=== PATIENT | female | born 1955 | race African-American/Black ===

== ENCOUNTER 2017-02-24 10:54 | Inpatient (IN) | payer BC ==
[2017-02-24 13:22] LABS: ADD MAN DIFF? NO
[2017-02-24 13:26] LABS: WHITE BLOOD COUNT 6.8 10^3/ul (4.8-10.8)
[2017-02-24 13:26] LABS: BASOPHILS % 0.4 % (0.0-2.0); EOSINOPHILS % 0.6 % (0.0-7.0); HEMATOCRIT 38.3 % (37.0-47.0); HEMOGLOBIN 12.1 g/dl (12.0-16.0); LYMPHOCYTES # 1.8 10^3/ul (0.8-2.9); LYMPHOCYTES % 26.3 % (15.0-51.0); MEAN CORPUSCULAR HEMOGLOBIN 27.2 pg (29.0-33.0); MEAN CORPUSCULAR HGB CONC 31.6 g/dl (32.0-37.0); MEAN CORPUSCULAR VOLUME 86.1 fl (82.0-101.0); MEAN PLATELET VOLUME 9.7 fl (7.4-10.4); MONOCYTE # 0.6 10^3/ul (0.3-0.9); MONOCYTES % 8.3 % (0.0-11.0); NEUTROPHIL # 4.4 10^3/ul (1.6-7.5); NEUTROPHILS % 64.1 % (39.0-77.0); PLATELET COUNT 278 10^3/UL (140-415); RED BLOOD COUNT 4.45 10^6/ul (4.20-5.40); RED CELL DISTRIBUTION WIDTH 16.6 % (11.5-14.5)
[2017-02-24 13:44] LABS: ALANINE AMINOTRANSFERASE 33 IU/L (13-69); ALBUMIN 4.2 g/dl (3.3-4.9); ALKALINE PHOSPHATASE 104 IU/L (42-121); ANION GAP 14 (8-16); ASPARTATE AMINO TRANSFERASE 23 IU/L (15-46); BILIRUBIN,INDIRECT 0.2 mg/dl (0-1.1); BILIRUBIN,TOTAL 0.2 mg/dl (0.2-1.3); BLOOD UREA NITROGEN 18 mg/dl (7-20); CARBON DIOXIDE 33 mmol/L (21-31); CHLORIDE 102 mmol/L (97-110); CREATININE 0.88 mg/dl (0.44-1.00); GLUCOSE 150 mg/dl (70-220); POTASSIUM 3.5 mmol/L (3.5-5.1); SODIUM 145 mmol/L (135-144)
[2017-02-24 13:47] LABS: INR 2.25; PROTIME 25.4 Sec (11.9-14.9)
[2017-02-24 13:48] LABS: PARTIAL THROMBOPLASTIN TIME 49.9 Sec (25.0-35.0)
[2017-02-24 13:56] LABS: TROPONIN-I < 0.012 ng/ml (0.00-0.12)
[2017-02-24 15:18] LABS: HEMATOCRIT 32.2 % (37.0-47.0); HEMOGLOBIN 10.1 g/dl (12.0-16.0)
[2017-02-24] MEDS ORDERED: ACETAMINOPHEN 325 MG TAB PO ×2 (16:00→17:00)
[2017-02-24] MEDS ORDERED: ONDANSETRON 4 MG INJ IV ×2 (16:00→17:00)
[2017-02-24] MEDS: morphine 4 MG/ML VIAL IV (16:14)
[2017-02-24] MEDS ORDERED: NACL 0.9% 3 ML SYG IV (17:00)
[2017-02-24] MEDS ORDERED: ZOLPIDEM 5 MG TAB PO (17:00)
[2017-02-24] MEDS ORDERED: morphine LIQ (10 MG/5 ML) CUP PO (17:00)
[2017-02-24] MEDS: POTASSIUM CHLORIDE (SR) 20 MEQ TAB PO (23:16)
[2017-02-24] MEDS: PANTOPRAZOLE 40 MG INJ IV (23:16)
[2017-02-24] MEDS: POTASSIUM CHLORIDE (SR) 10 MEQ TAB PO (23:27)
[2017-02-24] MEDS: NS + KCL 20 MEQ 1,000 ML IV (23:27)
[2017-02-25] MEDS: NS + KCL 20 MEQ 1,000 ML IV ×4 (02:55→22:55)
[2017-02-25] MEDS: PANTOPRAZOLE 40 MG INJ IV ×2 (06:20→17:39)
[2017-02-25] MEDS: LEVOTHYROXINE 100 MCG TAB PO (06:20)
[2017-02-25] MEDS: PHYTONADIONE 10 MG/ML INJ SC (07:50)
[2017-02-25 08:38] LABS: ADD MAN DIFF? NO
[2017-02-25 08:42] LABS: WHITE BLOOD COUNT 7.1 10^3/ul (4.8-10.8)
[2017-02-25 08:42] LABS: BASOPHILS % 0.1 % (0.0-2.0); EOSINOPHILS % 0.6 % (0.0-7.0); HEMATOCRIT 24.6 % (37.0-47.0); HEMOGLOBIN 7.7 g/dl (12.0-16.0); LYMPHOCYTES # 1.5 10^3/ul (0.8-2.9); LYMPHOCYTES % 21.5 % (15.0-51.0); MEAN CORPUSCULAR HEMOGLOBIN 27.4 pg (29.0-33.0); MEAN CORPUSCULAR HGB CONC 31.3 g/dl (32.0-37.0); MEAN CORPUSCULAR VOLUME 87.5 fl (82.0-101.0); MEAN PLATELET VOLUME 10.6 fl (7.4-10.4); MONOCYTE # 0.6 10^3/ul (0.3-0.9); NEUTROPHIL # 4.9 10^3/ul (1.6-7.5); NEUTROPHILS % 68.4 % (39.0-77.0); PLATELET COUNT 198 10^3/UL (140-415); RED BLOOD COUNT 2.81 10^6/ul (4.20-5.40); RED CELL DISTRIBUTION WIDTH 16.7 % (11.5-14.5)
[2017-02-25] MEDS: POTASSIUM CHLORIDE (SR) 10 MEQ TAB PO ×2 (08:53→21:17)
[2017-02-25] MEDS: DILTIAZEM (CD) 240 MG CAP PO (08:53)
[2017-02-25] MEDS: HYDROCHLOROTHIAZIDE 25 MG TAB PO (08:53)
[2017-02-25 08:58] LABS: PROTIME 26.8 Sec (11.9-14.9); PT RATIO 2.1
[2017-02-25 08:59] LABS: PARTIAL THROMBOPLASTIN TIME 43.9 Sec (25.0-35.0)
[2017-02-25 09:05] LABS: ANION GAP 10 (8-16); BLOOD UREA NITROGEN 20 mg/dl (7-20); CALCIUM 6.9 mg/dl (8.4-10.2); CARBON DIOXIDE 28 mmol/L (21-31); CHLORIDE 107 mmol/L (97-110); CREATININE 0.89 mg/dl (0.44-1.00); GLUCOSE 94 mg/dl (70-220); POTASSIUM 3.6 mmol/L (3.5-5.1); SODIUM 141 mmol/L (135-144)
[2017-02-25] MEDS: SOD FERRIC GLUC COMPLX 125 MG in SOD CHLORIDE 0.9% 100 ML IVPB (09:54)
[2017-02-25] MEDS: PROPOFOL 20 ML (12:10)
[2017-02-25] MEDS: LIDOCAINE 2% (SDV) 5 ML INJ (12:10)
[2017-02-25] MEDS: FENTAnyl 50 MCG/ML VIAL (12:10)
[2017-02-25] MEDS ORDERED: PEG/ELECTROLYTES 4L BTL PO (14:00)
[2017-02-25 14:17] LABS: ADD MAN DIFF? NO
[2017-02-25 14:21] LABS: WHITE BLOOD COUNT 7.2 10^3/ul (4.8-10.8)
[2017-02-25 14:21] LABS: BASOPHILS % 0.1 % (0.0-2.0); EOSINOPHILS # 0.1 10^3/ul (0.0-0.5); EOSINOPHILS % 0.7 % (0.0-7.0); HEMATOCRIT 24.7 % (37.0-47.0); HEMOGLOBIN 7.6 g/dl (12.0-16.0); LYMPHOCYTES # 1.7 10^3/ul (0.8-2.9); LYMPHOCYTES % 23.3 % (15.0-51.0); MEAN CORPUSCULAR HEMOGLOBIN 27.2 pg (29.0-33.0); MEAN CORPUSCULAR HGB CONC 30.8 g/dl (32.0-37.0); MEAN CORPUSCULAR VOLUME 88.5 fl (82.0-101.0); MEAN PLATELET VOLUME 10.5 fl (7.4-10.4); MONOCYTE # 0.7 10^3/ul (0.3-0.9); NEUTROPHIL # 4.8 10^3/ul (1.6-7.5); NEUTROPHILS % 66.5 % (39.0-77.0); PLATELET COUNT 179 10^3/UL (140-415); RED BLOOD COUNT 2.79 10^6/ul (4.20-5.40); RED CELL DISTRIBUTION WIDTH 16.7 % (11.5-14.5)
[2017-02-25] MEDS: PEG/ELECTROLYTES 4L BTL PO ×2 (14:28→22:17)
[2017-02-25] MEDS: MAGNESIUM CITRATE 300 ML BTL PO (17:11)
[2017-02-25 18:14] LABS: HEMATOCRIT 24.8 % (37.0-47.0); HEMOGLOBIN 7.8 g/dl (12.0-16.0)
[2017-02-25 20:43] LABS: IMMEDIATE SPIN CROSSMATCH 1
[2017-02-26 01:06] LABS: IMMEDIATE SPIN CROSSMATCH 1 1
[2017-02-26 02:57] LABS: HEMATOCRIT 27.7 % (37.0-47.0); HEMOGLOBIN 9.1 g/dl (12.0-16.0)
[2017-02-26] MEDS: PANTOPRAZOLE 40 MG INJ IV ×2 (06:01→18:35)
[2017-02-26] MEDS: LEVOTHYROXINE 100 MCG TAB PO (06:01)
[2017-02-26] MEDS: SOD FERRIC GLUC COMPLX 125 MG in SOD CHLORIDE 0.9% 100 ML IVPB (08:31)
[2017-02-26] MEDS: POTASSIUM CHLORIDE (SR) 10 MEQ TAB PO ×2 (08:32→20:43)
[2017-02-26] MEDS: HYDROCHLOROTHIAZIDE 25 MG TAB PO (08:32)
[2017-02-26] MEDS: NS + KCL 20 MEQ 1,000 ML IV ×3 (08:33→23:50)
[2017-02-26] MEDS: DILTIAZEM (CD) 240 MG CAP PO (08:33)
[2017-02-26 09:03] LABS: ADD MAN DIFF? NO
[2017-02-26 09:23] LABS: WHITE BLOOD COUNT 7.9 10^3/ul (4.8-10.8)
[2017-02-26 09:23] LABS: BASOPHILS % 0.3 % (0.0-2.0); EOSINOPHILS # 0.1 10^3/ul (0.0-0.5); EOSINOPHILS % 1.3 % (0.0-7.0); HEMATOCRIT 29.2 % (37.0-47.0); HEMOGLOBIN 9.6 g/dl (12.0-16.0); LYMPHOCYTES # 1.4 10^3/ul (0.8-2.9); LYMPHOCYTES % 17.2 % (15.0-51.0); MEAN CORPUSCULAR HEMOGLOBIN 28.4 pg (29.0-33.0); MEAN CORPUSCULAR HGB CONC 32.9 g/dl (32.0-37.0); MEAN CORPUSCULAR VOLUME 86.4 fl (82.0-101.0); MEAN PLATELET VOLUME 11.8 fl (7.4-10.4); MONOCYTE # 0.6 10^3/ul (0.3-0.9); MONOCYTES % 7.6 % (0.0-11.0); NEUTROPHIL # 5.7 10^3/ul (1.6-7.5); RED BLOOD COUNT 3.38 10^6/ul (4.20-5.40); RED CELL DISTRIBUTION WIDTH 16.4 % (11.5-14.5)
[2017-02-26 09:27] LABS: ANION GAP 14 (8-16); BLOOD UREA NITROGEN 12 mg/dl (7-20); CALCIUM 7.7 mg/dl (8.4-10.2); CARBON DIOXIDE 30 mmol/L (21-31); CHLORIDE 107 mmol/L (97-110); CREATININE 0.83 mg/dl (0.44-1.00); GLUCOSE 76 mg/dl (70-220); POTASSIUM 3.8 mmol/L (3.5-5.1); SODIUM 147 mmol/L (135-144)
[2017-02-26 09:28] LABS: INR 1.26; PARTIAL THROMBOPLASTIN TIME 25.3 Sec (25.0-35.0); PT RATIO 1.3
[2017-02-26 09:37] LABS: PLATELET COUNT 127 10^3/UL (140-415); POSITIVE DIFF @See below
[2017-02-26 12:58] LABS: ANISOCYTOSIS 1+ (0-0); BAND NEUTROPHILS #M 0.1 10^3/ul (0.0-0.6); BAND NEUTROPHILS % (M) 2 % (0-4); BURR CELLS 1+ (0-0); EOSINOPHILS % (M) 1 % (0-7); LYMPHOCYTES #M 3.1 10^3/ul (0.8-2.9); LYMPHOCYTES % (M) 40 % (15-51); MONOCYTES % (M) 1 % (0-11); OVALOCYTES 1+ (0-0); PLATELET ESTIMATE DECREASED; POIKILOCYTOSIS 1+ (0-0); POLYCHROMASIA 2+ (0-0); SEG NEUT #M 4.4 10^3/ul (1.7-7.5); SEGMENTED NEUTROPHILS (M) % 56 % (39-77)
[2017-02-26] MEDS: PROPOFOL 60 ML (14:34)
[2017-02-26] MEDS: LIDOCAINE 100 MG SYRINGE (14:34)
[2017-02-27] MEDS: LEVOTHYROXINE 100 MCG TAB PO (06:36)
[2017-02-27] MEDS: PANTOPRAZOLE 40 MG INJ IV ×2 (06:36→17:39)
[2017-02-27] MEDS: HYDROCHLOROTHIAZIDE 25 MG TAB PO (09:00)
[2017-02-27] MEDS ORDERED: DILTIAZEM (CD) 120 MG CAP PO (09:00)
[2017-02-27] MEDS: POTASSIUM CHLORIDE (SR) 10 MEQ TAB PO ×2 (09:10→21:03)
[2017-02-27] MEDS: SOD FERRIC GLUC COMPLX 125 MG in SOD CHLORIDE 0.9% 100 ML IVPB (09:10)
[2017-02-27 10:05] LABS: ADD MAN DIFF? NO
[2017-02-27 10:13] LABS: BASOPHILS % 0.1 % (0.0-2.0); EOSINOPHILS # 0.1 10^3/ul (0.0-0.5); EOSINOPHILS % 1.5 % (0.0-7.0); HEMATOCRIT 27.2 % (37.0-47.0); HEMOGLOBIN 8.8 g/dl (12.0-16.0); LYMPHOCYTES # 1.4 10^3/ul (0.8-2.9); MEAN CORPUSCULAR HEMOGLOBIN 28.4 pg (29.0-33.0); MEAN CORPUSCULAR HGB CONC 32.4 g/dl (32.0-37.0); MEAN CORPUSCULAR VOLUME 87.7 fl (82.0-101.0); MEAN PLATELET VOLUME 10.6 fl (7.4-10.4); MONOCYTE # 0.6 10^3/ul (0.3-0.9); MONOCYTES % 8.3 % (0.0-11.0); NEUTROPHILS % 70.8 % (39.0-77.0); NUCLEATED RED BLOOD CELLS% 0.3 /100WBC (0.0-0.0); PLATELET COUNT 212 10^3/UL (140-415); RED CELL DISTRIBUTION WIDTH 16.6 % (11.5-14.5)
[2017-02-27 10:13] LABS: WHITE BLOOD COUNT 7.1 10^3/ul (4.8-10.8)
[2017-02-27 10:37] LABS: MAGNESIUM 2.2 mg/dl (1.7-2.5)
[2017-02-27 10:37] LABS: CHOL/HDL RATIO 3.9 RATIO; CHOLESTEROL 150 mg/dl (100-200); HDL CHOLESTEROL 38 mg/dl (35-98); LDL CHOLESTEROL,CALCULATED 98 mg/dl; TRIGLYCERIDES 72 mg/dl (0-149)
[2017-02-27 10:43] LABS: INR 1.08; PROTIME 14.1 Sec (11.9-14.9); PT RATIO 1.1
[2017-02-27 10:44] LABS: PARTIAL THROMBOPLASTIN TIME 33.7 Sec (25.0-35.0)
[2017-02-27 10:45] LABS: B-TYPE NATRIURETIC PEPTIDE 126 PG/ML (0-125)
[2017-02-27 11:00] LABS: ANION GAP 13 (8-16); BLOOD UREA NITROGEN 6 mg/dl (7-20); CALCIUM 7.7 mg/dl (8.4-10.2); CARBON DIOXIDE 28 mmol/L (21-31); CHLORIDE 107 mmol/L (97-110); CREATININE 0.92 mg/dl (0.44-1.00); GLUCOSE 86 mg/dl (70-220); POTASSIUM 3.8 mmol/L (3.5-5.1); SODIUM 144 mmol/L (135-144)
[2017-02-27 11:05] LABS: THYROID STIMULATING HORMONE 0.496 MIU/L (0.465-4.680)
[2017-02-27] MEDS: NS + KCL 20 MEQ 1,000 ML IV (15:08)
[2017-02-28] MEDS: NS + KCL 20 MEQ 1,000 ML IV ×3 (00:55→20:14)
[2017-02-28] MEDS: LEVOTHYROXINE 100 MCG TAB PO (05:39)
[2017-02-28] MEDS: PANTOPRAZOLE 40 MG INJ IV ×2 (05:39→18:42)
[2017-02-28] MEDS: POTASSIUM CHLORIDE (SR) 10 MEQ TAB PO ×2 (09:32→20:12)
[2017-02-28] MEDS: HYDROCHLOROTHIAZIDE 25 MG TAB PO (09:32)
[2017-02-28] MEDS: SOD FERRIC GLUC COMPLX 125 MG in SOD CHLORIDE 0.9% 100 ML IVPB (10:55)
[2017-02-28] MEDS: WARFARIN 5 MG TAB PO (17:47)
[2017-03-01] MEDS: NS + KCL 20 MEQ 1,000 ML IV ×3 (03:40→23:58)
[2017-03-01] MEDS: LEVOTHYROXINE 100 MCG TAB PO (06:08)
[2017-03-01] MEDS: PANTOPRAZOLE 40 MG INJ IV ×2 (06:08→17:23)
[2017-03-01 06:45] LABS: ADD MAN DIFF? NO
[2017-03-01 06:54] LABS: WHITE BLOOD COUNT 7.3 10^3/ul (4.8-10.8)
[2017-03-01 06:54] LABS: BASOPHILS % 0.1 % (0.0-2.0); EOSINOPHILS # 0.1 10^3/ul (0.0-0.5); EOSINOPHILS % 1.9 % (0.0-7.0); HEMATOCRIT 26.8 % (37.0-47.0); HEMOGLOBIN 8.6 g/dl (12.0-16.0); LYMPHOCYTES # 1.4 10^3/ul (0.8-2.9); LYMPHOCYTES % 18.4 % (15.0-51.0); MEAN CORPUSCULAR HEMOGLOBIN 28.4 pg (29.0-33.0); MEAN CORPUSCULAR HGB CONC 32.1 g/dl (32.0-37.0); MEAN CORPUSCULAR VOLUME 88.4 fl (82.0-101.0); MEAN PLATELET VOLUME 10.2 fl (7.4-10.4); MONOCYTE # 0.5 10^3/ul (0.3-0.9); MONOCYTES % 7.1 % (0.0-11.0); NEUTROPHIL # 5.2 10^3/ul (1.6-7.5); NEUTROPHILS % 71.5 % (39.0-77.0); NUCLEATED RED BLOOD CELLS% 0.5 /100WBC (0.0-0.0); PLATELET COUNT 218 10^3/UL (140-415); RED BLOOD COUNT 3.03 10^6/ul (4.20-5.40)
[2017-03-01 07:09] LABS: INR 0.97
[2017-03-01 07:36] LABS: ANION GAP 14 (8-16); BLOOD UREA NITROGEN 6 mg/dl (7-20); CARBON DIOXIDE 28 mmol/L (21-31); CHLORIDE 106 mmol/L (97-110); GLUCOSE 101 mg/dl (70-220); POTASSIUM 4.1 mmol/L (3.5-5.1); SODIUM 144 mmol/L (135-144)
[2017-03-01] MEDS: HYDROCHLOROTHIAZIDE 25 MG TAB PO (08:25)
[2017-03-01] MEDS: POTASSIUM CHLORIDE (SR) 10 MEQ TAB PO ×2 (08:25→20:28)
[2017-03-01] MEDS: WARFARIN 5 MG TAB PO (17:22)
[2017-03-02] MEDS: LEVOTHYROXINE 100 MCG TAB PO (06:09)
[2017-03-02] MEDS: PANTOPRAZOLE 40 MG INJ IV (06:09)
[2017-03-02 07:27] LABS: ADD MAN DIFF? NO
[2017-03-02 07:29] LABS: WHITE BLOOD COUNT 7.2 10^3/ul (4.8-10.8)
[2017-03-02 07:29] LABS: BASOPHILS % 0.3 % (0.0-2.0); EOSINOPHILS # 0.1 10^3/ul (0.0-0.5); EOSINOPHILS % 1.8 % (0.0-7.0); HEMATOCRIT 28.5 % (37.0-47.0); HEMOGLOBIN 9.1 g/dl (12.0-16.0); LYMPHOCYTES # 1.2 10^3/ul (0.8-2.9); LYMPHOCYTES % 16.3 % (15.0-51.0); MEAN CORPUSCULAR HGB CONC 31.9 g/dl (32.0-37.0); MEAN CORPUSCULAR VOLUME 90.8 fl (82.0-101.0); MEAN PLATELET VOLUME 9.7 fl (7.4-10.4); MONOCYTE # 0.6 10^3/ul (0.3-0.9); MONOCYTES % 7.8 % (0.0-11.0); NEUTROPHIL # 5.3 10^3/ul (1.6-7.5); NEUTROPHILS % 72.7 % (39.0-77.0); NUCLEATED RED BLOOD CELLS # 0.1 10^3/ul (0.0-0.0); NUCLEATED RED BLOOD CELLS% 1.5 /100WBC (0.0-0.0); PLATELET COUNT 246 10^3/UL (140-415); RED BLOOD COUNT 3.14 10^6/ul (4.20-5.40); RED CELL DISTRIBUTION WIDTH 18.5 % (11.5-14.5)
[2017-03-02 07:49] LABS: INR 0.98; PROTIME 13.1 Sec (11.9-14.9)
[2017-03-02 08:05] LABS: ANION GAP 12 (8-16); BLOOD UREA NITROGEN 9 mg/dl (7-20); CALCIUM 8.1 mg/dl (8.4-10.2); CARBON DIOXIDE 28 mmol/L (21-31); CHLORIDE 106 mmol/L (97-110); CREATININE 0.92 mg/dl (0.44-1.00); GLUCOSE 102 mg/dl (70-220); POTASSIUM 4.1 mmol/L (3.5-5.1); SODIUM 142 mmol/L (135-144)
[2017-03-02] MEDS: POTASSIUM CHLORIDE (SR) 10 MEQ TAB PO ×2 (08:41→20:32)
[2017-03-02] MEDS: HYDROCHLOROTHIAZIDE 25 MG TAB PO (08:42)
[2017-03-02] MEDS: NS + KCL 20 MEQ 1,000 ML IV (12:24)
[2017-03-02] MEDS: SOD FERRIC GLUC COMPLX 125 MG in SOD CHLORIDE 0.9% 100 ML IVPB (15:32)
[2017-03-02] MEDS: WARFARIN 7.5 MG TAB PO (17:00)
[2017-03-02] MEDS ORDERED: WARFARIN 5 MG TAB (17:47)
[2017-03-02] MEDS ORDERED: WARFARIN 2.5 MG TAB (17:47)
[2017-03-02] MEDS: PANTOPRAZOLE (EC) 40 MG TAB PO (17:52)
[2017-03-02] MEDS: WARFARIN 5 MG TAB PO (18:55)
[2017-03-03] MEDS: NS + KCL 20 MEQ 1,000 ML IV ×3 (00:15→11:36)
[2017-03-03] MEDS: LEVOTHYROXINE 100 MCG TAB PO (06:08)
[2017-03-03] MEDS: PANTOPRAZOLE (EC) 40 MG TAB PO ×2 (06:08→17:46)
[2017-03-03 07:39] LABS: ADD MAN DIFF? NO
[2017-03-03 07:45] LABS: BASOPHILS % 0.4 % (0.0-2.0); EOSINOPHILS # 0.1 10^3/ul (0.0-0.5); EOSINOPHILS % 1.9 % (0.0-7.0); HEMATOCRIT 26.5 % (37.0-47.0); HEMOGLOBIN 8.3 g/dl (12.0-16.0); LYMPHOCYTES # 1.3 10^3/ul (0.8-2.9); LYMPHOCYTES % 18.1 % (15.0-51.0); MEAN CORPUSCULAR HEMOGLOBIN 28.6 pg (29.0-33.0); MEAN CORPUSCULAR HGB CONC 31.3 g/dl (32.0-37.0); MEAN CORPUSCULAR VOLUME 91.4 fl (82.0-101.0); MEAN PLATELET VOLUME 10.2 fl (7.4-10.4); MONOCYTE # 0.5 10^3/ul (0.3-0.9); MONOCYTES % 7.8 % (0.0-11.0); NEUTROPHIL # 4.9 10^3/ul (1.6-7.5); NEUTROPHILS % 70.9 % (39.0-77.0); NUCLEATED RED BLOOD CELLS # 0.1 10^3/ul (0.0-0.0); PLATELET COUNT 243 10^3/UL (140-415); RED CELL DISTRIBUTION WIDTH 18.7 % (11.5-14.5)
[2017-03-03 07:45] LABS: WHITE BLOOD COUNT 6.9 10^3/ul (4.8-10.8)
[2017-03-03 08:46] LABS: INR 1.03; PROTIME 13.6 Sec (11.9-14.9); PT RATIO 1.1
[2017-03-03] MEDS: HYDROCHLOROTHIAZIDE 25 MG TAB PO (09:33)
[2017-03-03] MEDS: POTASSIUM CHLORIDE (SR) 10 MEQ TAB PO ×2 (09:33→21:16)
[2017-03-03] MEDS: SOD FERRIC GLUC COMPLX 125 MG in SOD CHLORIDE 0.9% 100 ML IVPB (13:30)
[2017-03-03] MEDS: WARFARIN 7.5 MG TAB PO (17:47)
[2017-03-04] MEDS: NS + KCL 20 MEQ 1,000 ML IV ×2 (04:55→11:31)
[2017-03-04] MEDS: PANTOPRAZOLE (EC) 40 MG TAB PO (06:00)
[2017-03-04] MEDS: LEVOTHYROXINE 100 MCG TAB PO (06:20)
[2017-03-04 08:02] LABS: ADD MAN DIFF? NO
[2017-03-04 08:08] LABS: WHITE BLOOD COUNT 6.1 10^3/ul (4.8-10.8)
[2017-03-04 08:08] LABS: BASOPHILS % 0.3 % (0.0-2.0); EOSINOPHILS # 0.1 10^3/ul (0.0-0.5); EOSINOPHILS % 1.8 % (0.0-7.0); HEMATOCRIT 26.3 % (37.0-47.0); HEMOGLOBIN 8.3 g/dl (12.0-16.0); LYMPHOCYTES # 1.1 10^3/ul (0.8-2.9); MEAN CORPUSCULAR HEMOGLOBIN 28.3 pg (29.0-33.0); MEAN CORPUSCULAR HGB CONC 31.6 g/dl (32.0-37.0); MEAN CORPUSCULAR VOLUME 89.8 fl (82.0-101.0); MEAN PLATELET VOLUME 9.9 fl (7.4-10.4); MONOCYTE # 0.5 10^3/ul (0.3-0.9); MONOCYTES % 8.2 % (0.0-11.0); NEUTROPHIL # 4.4 10^3/ul (1.6-7.5); NEUTROPHILS % 71.2 % (39.0-77.0); NUCLEATED RED BLOOD CELLS # 0.1 10^3/ul (0.0-0.0); NUCLEATED RED BLOOD CELLS% 0.8 /100WBC (0.0-0.0); PLATELET COUNT 248 10^3/UL (140-415); RED BLOOD COUNT 2.93 10^6/ul (4.20-5.40)
[2017-03-04] MEDS: HYDROCHLOROTHIAZIDE 25 MG TAB PO (08:14)
[2017-03-04] MEDS: POTASSIUM CHLORIDE (SR) 10 MEQ TAB PO (08:14)
[2017-03-04 08:36] LABS: INR 1.04; PROTIME 13.7 Sec (11.9-14.9); PT RATIO 1.1
== END 2017-03-04 15:35 | disposition home or self-care (01) | DRG 378 ==
LOC: MS4 15:48 → TEL 23:45 → E/R 10:54
PROC: 0DJD8ZZ Inspection of Lower Intestinal Tract, Via Natural or Artificial Opening Endoscopic (ICD-10-PCS; principal; 2017-02-25 11:30)
PROC: 0DJ08ZZ Inspection of Upper Intestinal Tract, Via Natural or Artificial Opening Endoscopic (ICD-10-PCS; 2017-02-25 11:30)
PROC: 0DJD8ZZ Inspection of Lower Intestinal Tract, Via Natural or Artificial Opening Endoscopic (ICD-10-PCS; 2017-02-25 11:30)
PROC: 30233N1 Transfusion of Nonautologous Red Blood Cells into Peripheral Vein, Percutaneous Approach (ICD-10-PCS; 2017-02-25 11:30)
DX: K29.01 Acute gastritis with bleeding (principal); D62 Acute posthemorrhagic anemia; D68.59 Other primary thrombophilia; I27.21 Secondary pulmonary arterial hypertension; K59.39 Other megacolon; I49.5 Sick sinus syndrome; I48.0 Paroxysmal atrial fibrillation; K62.5 Hemorrhage of anus and rectum; I10 Essential (primary) hypertension; J45.909 Unspecified asthma, uncomplicated; K57.90 Diverticulosis of intestine, part unspecified, without perforation or abscess without bleeding; G47.33 Obstructive sleep apnea (adult) (pediatric); J45.20 Mild intermittent asthma, uncomplicated; E03.9 Hypothyroidism, unspecified; E66.9 Obesity, unspecified; I35.1 Nonrheumatic aortic (valve) insufficiency; K44.9 Diaphragmatic hernia without obstruction or gangrene; M19.91 Primary osteoarthritis, unspecified site; Z86.718 Personal history of other venous thrombosis and embolism; Z79.02 Long term (current) use of antithrombotics/antiplatelets; Z85.850 Personal history of malignant neoplasm of thyroid; Z90.711 Acquired absence of uterus with remaining cervical stump; Z68.38 Body mass index [BMI] 38.0-38.9, adult
CPT/HCPCS: 36415; 36430; 74176; 78278; 80048; 80053; 80061; 83735; 83880; 84443; 84484; 85014; 85018; 85025; 85610; 85730; 86644; 86850; 86900; 86901; 86920; 86945; 93005; 93306; 94660; 96374; 99291-25; G0378

== ENCOUNTER 2017-07-26 19:40 | Emergency (ER) | payer BC ==
[2017-07-26] MEDS ORDERED: DILTIAZEM 50 MG INJ IV (20:30)
== END 2017-07-26 20:52 | disposition home or self-care (01) ==
LOC: E/R 19:40
DX: R00.2 Palpitations (principal); I10 Essential (primary) hypertension; J45.909 Unspecified asthma, uncomplicated; Z79.01 Long term (current) use of anticoagulants
CPT/HCPCS: 99283; 99283-25

== ENCOUNTER 2017-09-07 07:47 | Emergency (ER) | payer BC ==
[2017-09-07] MEDS: KETOROLAC 60 MG INJ IM (08:41)
== END 2017-09-07 09:12 | disposition home or self-care (01) ==
LOC: FTE 07:47
DX: M54.9 Dorsalgia, unspecified (principal); I10 Essential (primary) hypertension; J45.909 Unspecified asthma, uncomplicated; E03.9 Hypothyroidism, unspecified; Z79.01 Long term (current) use of anticoagulants
CPT/HCPCS: 96372; 99284-25

== ENCOUNTER 2017-10-07 07:46 | Emergency (ER) | payer BC ==
[2017-10-07] MEDS: KETOROLAC 60 MG INJ IM (08:47)
== END 2017-10-07 09:35 | disposition home or self-care (01) ==
LOC: FTE 09:35
DX: M79.601 Pain in right arm (principal); I10 Essential (primary) hypertension; J45.909 Unspecified asthma, uncomplicated; Z79.01 Long term (current) use of anticoagulants
CPT/HCPCS: 73030; 73030-RT; 96372; 99284-25

== ENCOUNTER 2017-10-23 15:42 | Emergency (ER) | payer BC ==
[2017-10-23] MEDS: DILTIAZEM 30 MG TAB PO (17:10)
[2017-10-23 17:36] LABS: ADD MAN DIFF? NO
[2017-10-23 17:38] LABS: WHITE BLOOD COUNT 5.8 10^3/ul (4.8-10.8)
[2017-10-23 17:38] LABS: BASOPHILS % 0.3 % (0.0-2.0); EOSINOPHILS % 0.5 % (0.0-7.0); HEMATOCRIT 43.6 % (37.0-47.0); HEMOGLOBIN 14.2 g/dl (12.0-16.0); LYMPHOCYTES # 0.9 10^3/ul (0.8-2.9); LYMPHOCYTES % 16.1 % (15.0-51.0); MEAN CORPUSCULAR HGB CONC 32.6 g/dl (32.0-37.0); MEAN CORPUSCULAR VOLUME 82.9 fl (82.0-101.0); MEAN PLATELET VOLUME 10.4 fl (7.4-10.4); MONOCYTE # 0.4 10^3/ul (0.3-0.9); MONOCYTES % 7.4 % (0.0-11.0); NEUTROPHIL # 4.4 10^3/ul (1.6-7.5); NEUTROPHILS % 75.5 % (39.0-77.0); PLATELET COUNT 252 10^3/UL (140-415); RED BLOOD COUNT 5.26 10^6/ul (4.20-5.40); RED CELL DISTRIBUTION WIDTH 16.6 % (11.5-14.5)
[2017-10-23 17:58] LABS: ALANINE AMINOTRANSFERASE 26 IU/L (13-69); ALBUMIN 4.6 g/dl (3.3-4.9); ALBUMIN/GLOBULIN RATIO 1.09; ALKALINE PHOSPHATASE 81 IU/L (42-121); ANION GAP 19 (8-16); ASPARTATE AMINO TRANSFERASE 30 IU/L (15-46); BILIRUBIN,INDIRECT 0.3 mg/dl (0-1.1); BILIRUBIN,TOTAL 0.3 mg/dl (0.2-1.3); BLOOD UREA NITROGEN 19 mg/dl (7-20); CALCIUM 9.5 mg/dl (8.4-10.2); CARBON DIOXIDE 28 mmol/L (21-31); CHLORIDE 106 mmol/L (97-110); CREATININE 0.79 mg/dl (0.44-1.00); GLUCOSE 104 mg/dl (70-220); LIPASE 59 U/L (23-300); POTASSIUM 3.4 mmol/L (3.5-5.1); SODIUM 150 mmol/L (135-144); TOTAL PROTEIN 8.8 g/dl (6.1-8.1)
[2017-10-23] MEDS: DILTIAZEM 25 MG INJ IV (17:59)
[2017-10-23 18:10] LABS: B-TYPE NATRIURETIC PEPTIDE 122 PG/ML (0-125); TROPONIN-I < 0.012 ng/ml (0.000-0.120)
[2017-10-23] MEDS: LACTATED RINGER'S 1,000 ML IV (18:47)
[2017-10-23] MEDS: POTASSIUM CHLORIDE (SR) 20 MEQ TAB PO (18:48)
== END 2017-10-23 21:20 | disposition home or self-care (01) ==
LOC: E/R 15:42
DX: I48.91 Unspecified atrial fibrillation (principal); I10 Essential (primary) hypertension; J45.909 Unspecified asthma, uncomplicated; E66.9 Obesity, unspecified; E03.9 Hypothyroidism, unspecified; Z79.01 Long term (current) use of anticoagulants
CPT/HCPCS: 71045; 80053; 83690; 83880; 84484; 85025; 93005; 96361; 96374; 99285-25

== ENCOUNTER 2017-11-14 16:44 | Emergency (ER) | payer BC ==
[2017-11-14] MEDS: DILTIAZEM 25 MG INJ IV (17:33)
[2017-11-14 17:57] LABS: ADD MAN DIFF? NO
[2017-11-14 17:59] LABS: WHITE BLOOD COUNT 5.4 10^3/ul (4.8-10.8)
[2017-11-14 17:59] LABS: BASOPHILS % 0.4 % (0.0-2.0); EOSINOPHILS % 0.6 % (0.0-7.0); HEMATOCRIT 44.1 % (37.0-47.0); HEMOGLOBIN 14.1 g/dl (12.0-16.0); LYMPHOCYTES % 19.3 % (15.0-51.0); MEAN CORPUSCULAR HEMOGLOBIN 26.7 pg (29.0-33.0); MEAN CORPUSCULAR VOLUME 83.4 fl (82.0-101.0); MEAN PLATELET VOLUME 9.8 fl (7.4-10.4); MONOCYTE # 0.5 10^3/ul (0.3-0.9); MONOCYTES % 8.4 % (0.0-11.0); NEUTROPHIL # 3.8 10^3/ul (1.6-7.5); NEUTROPHILS % 71.1 % (39.0-77.0); PLATELET COUNT 260 10^3/UL (140-415); RED BLOOD COUNT 5.29 10^6/ul (4.20-5.40); RED CELL DISTRIBUTION WIDTH 16.2 % (11.5-14.5)
[2017-11-14 18:15] LABS: INR 1.74; PROTIME 20.7 Sec (11.9-14.9); PT RATIO 1.6
[2017-11-14 18:16] LABS: PARTIAL THROMBOPLASTIN TIME 44.1 Sec (25.0-35.0)
[2017-11-14 18:20] LABS: ANION GAP 13 (8-16); BLOOD UREA NITROGEN 22 mg/dl (7-20); CALCIUM 9.5 mg/dl (8.4-10.2); CARBON DIOXIDE 30 mmol/L (21-31); CHLORIDE 103 mmol/L (97-110); CREATININE 0.82 mg/dl (0.44-1.00); GLUCOSE 111 mg/dl (70-220); POTASSIUM 3.4 mmol/L (3.5-5.1); SODIUM 143 mmol/L (135-144)
[2017-11-14 18:31] LABS: TROPONIN-I < 0.012 ng/ml (0.000-0.120)
[2017-11-14] MEDS: POTASSIUM CHLORIDE (SR) 20 MEQ TAB PO (18:56)
== END 2017-11-14 19:05 | disposition home or self-care (01) ==
LOC: E/R 16:44
DX: I48.92 Unspecified atrial flutter (principal); E87.6 Hypokalemia; I10 Essential (primary) hypertension; J45.909 Unspecified asthma, uncomplicated; Z79.01 Long term (current) use of anticoagulants
CPT/HCPCS: 36415; 71045; 80048; 84484; 85025; 85610; 85730; 93005; 96374; 99291-25

== ENCOUNTER 2017-11-22 08:04 | Emergency (ER) | payer BC ==
[2017-11-22 09:08] LABS: ADD MAN DIFF? NO
[2017-11-22 09:13] LABS: WHITE BLOOD COUNT 4.9 10^3/ul (4.8-10.8)
[2017-11-22 09:13] LABS: BASOPHILS % 0.2 % (0.0-2.0); EOSINOPHILS % 0.6 % (0.0-7.0); HEMOGLOBIN 14.3 g/dl (12.0-16.0); MEAN CORPUSCULAR HEMOGLOBIN 26.1 pg (29.0-33.0); MEAN CORPUSCULAR HGB CONC 31.1 g/dl (32.0-37.0); MEAN CORPUSCULAR VOLUME 83.9 fl (82.0-101.0); MEAN PLATELET VOLUME 10.3 fl (7.4-10.4); MONOCYTE # 0.5 10^3/ul (0.3-0.9); MONOCYTES % 10.5 % (0.0-11.0); NEUTROPHIL # 3.3 10^3/ul (1.6-7.5); NEUTROPHILS % 67.5 % (39.0-77.0); PLATELET COUNT 262 10^3/UL (140-415); RED BLOOD COUNT 5.48 10^6/ul (4.20-5.40); RED CELL DISTRIBUTION WIDTH 17.2 % (11.5-14.5)
[2017-11-22 09:17] LABS: INR 1.65; PROTIME 19.9 Sec (11.9-14.9); PT RATIO 1.6
[2017-11-22 09:18] LABS: PARTIAL THROMBOPLASTIN TIME 46.2 Sec (23.0-35.0)
[2017-11-22] MEDS: DILTIAZEM 25 MG INJ IV (09:27)
[2017-11-22 09:30] LABS: ANION GAP 12 (8-16); BLOOD UREA NITROGEN 14 mg/dl (7-20); CALCIUM 9.5 mg/dl (8.4-10.2); CARBON DIOXIDE 30 mmol/L (21-31); CHLORIDE 106 mmol/L (97-110); CREATININE 0.78 mg/dl (0.44-1.00); GLUCOSE 124 mg/dl (70-220); SODIUM 144 mmol/L (135-144)
[2017-11-22 09:42] LABS: TROPONIN-I < 0.012 ng/ml (0.000-0.120)
[2017-11-22 09:47] LABS: FREE T4 (FREE THYROXINE) 1.91 ng/dl (0.78-2.44)
== END 2017-11-22 11:29 | disposition home or self-care (01) ==
LOC: E/R 08:04
DX: I48.92 Unspecified atrial flutter (principal); R40.2142 Coma scale, eyes open, spontaneous, at arrival to emergency department; R40.2252 Coma scale, best verbal response, oriented, at arrival to emergency department; R40.2362 Coma scale, best motor response, obeys commands, at arrival to emergency department; I10 Essential (primary) hypertension; J45.909 Unspecified asthma, uncomplicated; Z79.01 Long term (current) use of anticoagulants
CPT/HCPCS: 36415; 80048; 84439; 84443; 84484; 85025; 85610; 85730; 96374; 99284-25

== ENCOUNTER 2017-11-23 09:02 | Inpatient (IN) | payer BC ==
[2017-11-23] MEDS ORDERED: ONDANSETRON 4 MG INJ IV (09:30)
[2017-11-23] MEDS ORDERED: ACETAMINOPHEN 325 MG TAB PO (09:30)
[2017-11-23 09:55] LABS: ADD MAN DIFF? NO
[2017-11-23 09:56] LABS: WHITE BLOOD COUNT 5.4 10^3/ul (4.8-10.8)
[2017-11-23 09:56] LABS: BASOPHILS % 0.6 % (0.0-2.0); EOSINOPHILS # 0.1 10^3/ul (0.0-0.5); EOSINOPHILS % 1.3 % (0.0-7.0); HEMATOCRIT 45.8 % (37.0-47.0); HEMOGLOBIN 14.3 g/dl (12.0-16.0); LYMPHOCYTES # 1.9 10^3/ul (0.8-2.9); LYMPHOCYTES % 35.3 % (15.0-51.0); MEAN CORPUSCULAR HEMOGLOBIN 26.3 pg (29.0-33.0); MEAN CORPUSCULAR HGB CONC 31.2 g/dl (32.0-37.0); MEAN CORPUSCULAR VOLUME 84.2 fl (82.0-101.0); MEAN PLATELET VOLUME 9.7 fl (7.4-10.4); MONOCYTE # 0.6 10^3/ul (0.3-0.9); MONOCYTES % 11.3 % (0.0-11.0); NEUTROPHIL # 2.8 10^3/ul (1.6-7.5); NEUTROPHILS % 51.1 % (39.0-77.0); PLATELET COUNT 264 10^3/UL (140-415); RED BLOOD COUNT 5.44 10^6/ul (4.20-5.40); RED CELL DISTRIBUTION WIDTH 16.7 % (11.5-14.5)
[2017-11-23] MEDS: DILTIAZEM 25 MG INJ IV ×4 (10:04→10:28)
[2017-11-23 10:39] LABS: ANION GAP 14 (8-16); BLOOD UREA NITROGEN 27 mg/dl (7-20); CALCIUM 9.8 mg/dl (8.4-10.2); CARBON DIOXIDE 27 mmol/L (21-31); CHLORIDE 106 mmol/L (97-110); CREATININE 0.99 mg/dl (0.44-1.00); GLUCOSE 108 mg/dl (70-220); MAGNESIUM 2.3 mg/dl (1.7-2.5); POTASSIUM 3.9 mmol/L (3.5-5.1); SODIUM 143 mmol/L (135-144)
[2017-11-23 10:51] LABS: TROPONIN-I < 0.012 ng/ml (0.000-0.120)
[2017-11-23 10:56] LABS: FREE T4 (FREE THYROXINE) 1.87 ng/dl (0.78-2.44)
[2017-11-23 11:10] LABS: THYROID STIMULATING HORMONE 0.205 MIU/L (0.465-4.680)
[2017-11-23 13:11] LABS: INR 1.68; PROTIME 20.1 Sec (11.9-14.9); PT RATIO 1.6
[2017-11-23 13:12] LABS: PARTIAL THROMBOPLASTIN TIME 42.5 Sec (23.0-35.0)
[2017-11-23] MEDS: DILTIAZEM (CD) 240 MG CAP PO (16:04)
[2017-11-23 18:41] LABS: CREATINE KINASE 130 IU/L (23-200)
[2017-11-23 18:55] LABS: CK INDEX 0.7; CK-MB 0.93 ng/ml (0.0-2.4); TROPONIN-I < 0.012 ng/ml (0.000-0.120)
[2017-11-24 01:13] LABS: CREATINE KINASE 110 IU/L (23-200)
[2017-11-24 02:16] LABS: CK INDEX 0.8; CK-MB 0.88 ng/ml (0.0-2.4); TROPONIN-I < 0.012 ng/ml (0.000-0.120)
[2017-11-24] MEDS: LEVOTHYROXINE 100 MCG TAB PO (07:23)
[2017-11-24] MEDS: DILTIAZEM 30 MG TAB PO ×2 (10:36→21:20)
[2017-11-24] MEDS: ZOLPIDEM 5 MG TAB PO (21:20)
[2017-11-24] MEDS: ENOXAPARIN 80 MG/0.8 ML SYG SC (21:30)
[2017-11-25] MEDS: LEVOTHYROXINE 100 MCG TAB PO (05:10)
[2017-11-25 06:16] LABS: ADD MAN DIFF? NO
[2017-11-25 06:28] LABS: WHITE BLOOD COUNT 4.9 10^3/ul (4.8-10.8)
[2017-11-25 06:28] LABS: BASOPHILS % 0.4 % (0.0-2.0); EOSINOPHILS # 0.1 10^3/ul (0.0-0.5); EOSINOPHILS % 2.1 % (0.0-7.0); HEMOGLOBIN 13.6 g/dl (12.0-16.0); LYMPHOCYTES # 1.6 10^3/ul (0.8-2.9); LYMPHOCYTES % 33.5 % (15.0-51.0); MEAN CORPUSCULAR HEMOGLOBIN 26.8 pg (29.0-33.0); MEAN CORPUSCULAR HGB CONC 31.6 g/dl (32.0-37.0); MEAN CORPUSCULAR VOLUME 84.6 fl (82.0-101.0); MEAN PLATELET VOLUME 10.2 fl (7.4-10.4); MONOCYTE # 0.5 10^3/ul (0.3-0.9); MONOCYTES % 10.1 % (0.0-11.0); NEUTROPHIL # 2.6 10^3/ul (1.6-7.5); NEUTROPHILS % 53.7 % (39.0-77.0); PLATELET COUNT 243 10^3/UL (140-415); RED BLOOD COUNT 5.08 10^6/ul (4.20-5.40); RED CELL DISTRIBUTION WIDTH 16.5 % (11.5-14.5)
[2017-11-25 06:47] LABS: INR 1.57; PROTIME 19.1 Sec (11.9-14.9); PT RATIO 1.5
[2017-11-25 06:49] LABS: PARTIAL THROMBOPLASTIN TIME 49.4 Sec (23.0-35.0)
[2017-11-25] MEDS: DILTIAZEM 30 MG TAB PO (08:08)
[2017-11-25] MEDS: ENOXAPARIN 80 MG/0.8 ML SYG SC ×2 (08:23→20:41)
[2017-11-25 08:25] LABS: ALANINE AMINOTRANSFERASE 21 IU/L (13-69); ALBUMIN 3.8 g/dl (3.3-4.9); ALBUMIN/GLOBULIN RATIO 1.11; ALKALINE PHOSPHATASE 100 IU/L (42-121); ANION GAP 11 (8-16); ASPARTATE AMINO TRANSFERASE 45 IU/L (15-46); BILIRUBIN,INDIRECT 0.2 mg/dl (0-1.1); BILIRUBIN,TOTAL 0.2 mg/dl (0.2-1.3); BLOOD UREA NITROGEN 28 mg/dl (7-20); CALCIUM 8.8 mg/dl (8.4-10.2); CARBON DIOXIDE 26 mmol/L (21-31); CHLORIDE 109 mmol/L (97-110); CREATININE 1.04 mg/dl (0.44-1.00); GLUCOSE 106 mg/dl (70-220); POTASSIUM 4.1 mmol/L (3.5-5.1); SODIUM 142 mmol/L (135-144); TOTAL PROTEIN 7.2 g/dl (6.1-8.1)
[2017-11-25] MEDS ORDERED: PROPOFOL 60 ML (15:58)
[2017-11-25] MEDS ORDERED: LIDOCAINE 2% (SDV) 5 ML INJ (15:58)
[2017-11-25] MEDS ORDERED: ONDANSETRON 4 MG INJ IV (16:30)
[2017-11-25] MEDS: WARFARIN 5 MG TAB PO (17:02)
[2017-11-25] MEDS: SOD CHLORIDE 0.9% 1,000 ML IV (17:38)
[2017-11-25] MEDS ORDERED: ATROPINE 1 MG/10 ML SYRINGE IV (18:00)
[2017-11-25] MEDS: WARFARIN 10 MG TAB PO (22:32)
[2017-11-26] MEDS: LEVOTHYROXINE 100 MCG TAB PO (05:56)
[2017-11-26 06:08] LABS: INR 1.48; PROTIME 18.2 Sec (11.9-14.9); PT RATIO 1.4
[2017-11-26] MEDS: DEXTROSE 5%-0.45% NACL 1,000 ML IV ×2 (11:02→21:33)
[2017-11-26] MEDS ORDERED: LIDOCAINE 1% (MDV) 20 ML INJ (14:48)
[2017-11-26] MEDS ORDERED: CEFAZOLIN 1 GM/50 ML (PMX) 100 ML IVPB (14:48)
[2017-11-26] MEDS ORDERED: SOD CHLORIDE 0.9% 500 ML (14:48)
[2017-11-26] MEDS ORDERED: LIDOCAINE 1%/EPI 30 ML INJ (14:48)
[2017-11-26] MEDS ORDERED: IODIXANOL LOCM 50 ML BTL (14:49)
[2017-11-26] MEDS ORDERED: LIDOCAINE 2% (SDV) 5 ML INJ (14:57)
[2017-11-26] MEDS ORDERED: PROPOFOL 40 ML (14:57)
[2017-11-26] MEDS ORDERED: EPHEDrine SULFATE 50 MG/5 ML SYG (14:58)
[2017-11-26] MEDS ORDERED: FENTAnyl 50 MCG/ML VIAL (14:59)
[2017-11-26] MEDS ORDERED: MIDAZOLAM 1 MG/ML 2 ML INJ (14:59)
[2017-11-26] MEDS ORDERED: POLYMYXIN/BACITRACIN 1L IRRIG IRR (15:00)
[2017-11-26] MEDS ORDERED: PROPOFOL 20 ML (16:45)
[2017-11-26] MEDS ORDERED: WARFARIN 7.5 MG TAB PO (17:00)
[2017-11-26] MEDS: CEFAZOLIN 1 GM/50 ML (PMX) 50 ML IVPB (21:33)
[2017-11-26] MEDS: HYDROCODONE/APAP (5/325) TAB PO (21:34)
[2017-11-27] MEDS: LEVOTHYROXINE 100 MCG TAB PO (05:09)
[2017-11-27] MEDS: HYDROCODONE/APAP (5/325) TAB PO ×3 (05:09→15:26)
[2017-11-27] MEDS: CEFAZOLIN 1 GM/50 ML (PMX) 50 ML IVPB ×3 (05:09→21:55)
[2017-11-27] MEDS ORDERED: RIVAROXABAN 20 MG TABLET PO (09:00)
[2017-11-27] MEDS: DILTIAZEM (CD) 120 MG CAP PO (10:08)
[2017-11-27] MEDS: ENOXAPARIN 80 MG/0.8 ML SYG SC ×2 (11:00→21:54)
[2017-11-27] MEDS: DEXTROSE 5%-0.45% NACL 1,000 ML IV (11:40)
[2017-11-27] MEDS: WARFARIN 7.5 MG TAB PO (17:36)
[2017-11-28] MEDS: DEXTROSE 5%-0.45% NACL 1,000 ML IV (04:53)
[2017-11-28] MEDS: CEFAZOLIN 1 GM/50 ML (PMX) 50 ML IVPB ×3 (06:21→21:06)
[2017-11-28] MEDS: LEVOTHYROXINE 100 MCG TAB PO (06:21)
[2017-11-28 09:17] LABS: INR 2.29; PROTIME 25.8 Sec (11.9-14.9)
[2017-11-28] MEDS: DILTIAZEM (CD) 120 MG CAP PO (09:22)
[2017-11-28] MEDS: ENOXAPARIN 80 MG/0.8 ML SYG SC ×2 (09:31→21:11)
[2017-11-28] MEDS: DOCUSATE SODIUM 100 MG CAP PO ×2 (12:02→21:06)
[2017-11-28] MEDS: traMADol 50 MG TAB PO ×2 (12:03→21:06)
[2017-11-28] MEDS: WARFARIN 5 MG TAB PO (16:53)
[2017-11-29] MEDS: CEFAZOLIN 1 GM/50 ML (PMX) 50 ML IVPB ×2 (05:28→15:04)
[2017-11-29] MEDS: LEVOTHYROXINE 100 MCG TAB PO (05:29)
[2017-11-29 06:02] LABS: ADD MAN DIFF? NO
[2017-11-29 06:05] LABS: WHITE BLOOD COUNT 7.6 10^3/ul (4.8-10.8)
[2017-11-29 06:05] LABS: BASOPHILS % 0.4 % (0.0-2.0); EOSINOPHILS # 0.1 10^3/ul (0.0-0.5); EOSINOPHILS % 1.7 % (0.0-7.0); HEMATOCRIT 34.4 % (37.0-47.0); LYMPHOCYTES # 1.2 10^3/ul (0.8-2.9); LYMPHOCYTES % 16.3 % (15.0-51.0); MEAN CORPUSCULAR HEMOGLOBIN 26.8 pg (29.0-33.0); MEAN CORPUSCULAR VOLUME 83.9 fl (82.0-101.0); MEAN PLATELET VOLUME 10.4 fl (7.4-10.4); MONOCYTE # 0.6 10^3/ul (0.3-0.9); MONOCYTES % 8.4 % (0.0-11.0); NEUTROPHIL # 5.6 10^3/ul (1.6-7.5); NEUTROPHILS % 72.9 % (39.0-77.0); PLATELET COUNT 204 10^3/UL (140-415)
[2017-11-29 06:19] LABS: INR 2.52; PROTIME 27.9 Sec (11.9-14.9); PT RATIO 2.2
[2017-11-29 06:23] LABS: ANION GAP 9 (8-16); BLOOD UREA NITROGEN 6 mg/dl (7-20); CALCIUM 8.3 mg/dl (8.4-10.2); CARBON DIOXIDE 31 mmol/L (21-31); CHLORIDE 106 mmol/L (97-110); CREATININE 0.69 mg/dl (0.44-1.00); GLUCOSE 117 mg/dl (70-220); POTASSIUM 3.5 mmol/L (3.5-5.1); SODIUM 142 mmol/L (135-144)
[2017-11-29] MEDS: DOCUSATE SODIUM 100 MG CAP PO (09:51)
[2017-11-29] MEDS: DILTIAZEM (CD) 120 MG CAP PO (09:51)
[2017-11-29] MEDS: traMADol 50 MG TAB PO (09:51)
[2017-11-29] MEDS: ENOXAPARIN 80 MG/0.8 ML SYG SC (09:58)
[2017-11-29] MEDS: BISACODYL (EC) 5 MG TAB PO (10:00)
[2017-11-29] MEDS: WARFARIN 5 MG TAB PO (16:39)
== END 2017-11-29 18:31 | disposition home or self-care (01) | DRG 243 ==
LOC: E/R 09:02 → 6WM 09:31
PROC: 0JH606Z Insertion of Pacemaker, Dual Chamber into Chest Subcutaneous Tissue and Fascia, Open Approach (ICD-10-PCS; principal; 2017-11-25 14:50)
PROC: 02HK3JZ Insertion of Pacemaker Lead into Right Ventricle, Percutaneous Approach (ICD-10-PCS; 2017-11-25 14:50)
PROC: 02H63JZ Insertion of Pacemaker Lead into Right Atrium, Percutaneous Approach (ICD-10-PCS; 2017-11-25 14:50)
PROC: 5A2204Z Restoration of Cardiac Rhythm, Single (ICD-10-PCS; 2017-11-25 14:50)
DX: I49.5 Sick sinus syndrome (principal); I48.92 Unspecified atrial flutter; D68.59 Other primary thrombophilia; I48.0 Paroxysmal atrial fibrillation; G47.33 Obstructive sleep apnea (adult) (pediatric); E03.9 Hypothyroidism, unspecified; I10 Essential (primary) hypertension; E66.9 Obesity, unspecified; Z68.35 Body mass index [BMI] 35.0-35.9, adult; Z79.01 Long term (current) use of anticoagulants; Z86.711 Personal history of pulmonary embolism; Z83.3 Family history of diabetes mellitus
CPT/HCPCS: 71045; 80048; 80053; 82550; 82553; 82962; 83735; 84439; 84443; 84484; 85025; 85610; 85730; 92960; 93005; 93312; 93320; 93325; 97161; 99291-25

== ENCOUNTER 2018-01-26 00:52 | Observation (INO) | payer BC ==
[2018-01-26 01:52] LABS: ADD MAN DIFF? NO
[2018-01-26 01:55] LABS: BASOPHILS % 0.3 % (0.0-2.0); EOSINOPHILS # 0.1 10^3/ul (0.0-0.5); HEMATOCRIT 39.1 % (37.0-47.0); HEMOGLOBIN 12.5 g/dl (12.0-16.0); LYMPHOCYTES # 1.5 10^3/ul (0.8-2.9); LYMPHOCYTES % 26.2 % (15.0-51.0); MEAN CORPUSCULAR HEMOGLOBIN 26.9 pg (29.0-33.0); MEAN CORPUSCULAR VOLUME 84.1 fl (82.0-101.0); MEAN PLATELET VOLUME 9.5 fl (7.4-10.4); MONOCYTE # 0.7 10^3/ul (0.3-0.9); MONOCYTES % 11.5 % (0.0-11.0); NEUTROPHIL # 3.5 10^3/ul (1.6-7.5); NEUTROPHILS % 60.8 % (39.0-77.0); PLATELET COUNT 294 10^3/UL (140-415); RED BLOOD COUNT 4.65 10^6/ul (4.20-5.40); RED CELL DISTRIBUTION WIDTH 18.2 % (11.5-14.5)
[2018-01-26 01:55] LABS: WHITE BLOOD COUNT 5.8 10^3/ul (4.8-10.8)
[2018-01-26 02:20] LABS: ANION GAP 10 (5-13); BLOOD UREA NITROGEN 18 mg/dl (7-20); CALCIUM 9.3 mg/dl (8.4-10.2); CARBON DIOXIDE 30 mmol/L (21-31); CHLORIDE 107 mmol/L (97-110); CREATININE 0.79 mg/dl (0.44-1.00); Estimated GFR > 60 mL/min (>60); GLUCOSE 131 mg/dl (70-220); SODIUM 147 mmol/L (135-144)
[2018-01-26 02:32] LABS: TROPONIN-I < 0.012 ng/ml (0.000-0.120)
[2018-01-26] MEDS: DILTIAZEM 25 MG INJ IV (03:17)
[2018-01-26 03:23] LABS: CREATINE KINASE 146 IU/L (23-200)
[2018-01-26 03:36] LABS: CK INDEX 0.6; CK-MB 0.93 ng/ml (0.0-2.4); TROPONIN-I < 0.012 ng/ml (0.000-0.120)
[2018-01-26] MEDS: LEVOTHYROXINE 100 MCG TAB PO (06:56)
[2018-01-26] MEDS ORDERED: NACL 0.9% 3 ML SYG IV (07:00)
[2018-01-26] MEDS ORDERED: NITROGLYCERIN (SL) 0.4 MG TAB SL (07:00)
[2018-01-26] MEDS ORDERED: ZOLPIDEM 5 MG TAB PO (07:00)
[2018-01-26] MEDS ORDERED: LORAZEPAM 0.5 MG TAB PO (07:00)
[2018-01-26] MEDS ORDERED: ONDANSETRON 4 MG TAB PO (07:00)
[2018-01-26] MEDS ORDERED: DILTIAZEM (CD) 120 MG CAP PO ×2 (09:00)
[2018-01-26] MEDS: FAMOTIDINE 20 MG TAB PO ×2 (09:25→20:59)
[2018-01-26] MEDS: DILTIAZEM (CD) 300 MG CAP PO (09:26)
[2018-01-26 10:53] LABS: INR 2.14; PROTIME 24.4 Sec (11.9-14.9); PT RATIO 1.9
[2018-01-26 11:08] LABS: CREATINE KINASE 120 IU/L (23-200)
[2018-01-26 11:20] LABS: CK INDEX 0.8; CK-MB 0.93 ng/ml (0.0-2.4); TROPONIN-I < 0.012 ng/ml (0.000-0.120)
[2018-01-26] MEDS: traMADol 50 MG TAB PO (17:01)
[2018-01-26] MEDS: WARFARIN 5 MG TAB PO (17:01)
[2018-01-27 06:00] LABS: ADD MAN DIFF? NO
[2018-01-27 06:07] LABS: WHITE BLOOD COUNT 4.8 10^3/ul (4.8-10.8)
[2018-01-27 06:07] LABS: BASOPHILS % 0.4 % (0.0-2.0); EOSINOPHILS # 0.1 10^3/ul (0.0-0.5); EOSINOPHILS % 2.1 % (0.0-7.0); HEMATOCRIT 39.5 % (37.0-47.0); HEMOGLOBIN 12.6 g/dl (12.0-16.0); LYMPHOCYTES # 1.7 10^3/ul (0.8-2.9); LYMPHOCYTES % 34.2 % (15.0-51.0); MEAN CORPUSCULAR HEMOGLOBIN 26.9 pg (29.0-33.0); MEAN CORPUSCULAR HGB CONC 31.9 g/dl (32.0-37.0); MEAN CORPUSCULAR VOLUME 84.4 fl (82.0-101.0); MEAN PLATELET VOLUME 9.7 fl (7.4-10.4); MONOCYTE # 0.6 10^3/ul (0.3-0.9); MONOCYTES % 12.9 % (0.0-11.0); NEUTROPHIL # 2.4 10^3/ul (1.6-7.5); NEUTROPHILS % 50.2 % (39.0-77.0); PLATELET COUNT 284 10^3/UL (140-415); RED BLOOD COUNT 4.68 10^6/ul (4.20-5.40); RED CELL DISTRIBUTION WIDTH 18.3 % (11.5-14.5)
[2018-01-27 06:26] LABS: ALANINE AMINOTRANSFERASE 24 IU/L (13-69); ALBUMIN 3.6 g/dl (3.3-4.9); ALBUMIN/GLOBULIN RATIO 1.05; ALKALINE PHOSPHATASE 100 IU/L (42-121); ANION GAP 9 (5-13); ASPARTATE AMINO TRANSFERASE 24 IU/L (15-46); BILIRUBIN,INDIRECT 0.4 mg/dl (0-1.1); BILIRUBIN,TOTAL 0.4 mg/dl (0.2-1.3); BLOOD UREA NITROGEN 18 mg/dl (7-20); CALCIUM 8.8 mg/dl (8.4-10.2); CARBON DIOXIDE 29 mmol/L (21-31); CHLORIDE 104 mmol/L (97-110); CREATININE 0.84 mg/dl (0.44-1.00); Estimated GFR > 60 mL/min (>60); GLUCOSE 104 mg/dl (70-220); POTASSIUM 4.2 mmol/L (3.5-5.1); SODIUM 142 mmol/L (135-144)
[2018-01-27] MEDS: LEVOTHYROXINE 100 MCG TAB PO (06:31)
[2018-01-27 06:34] LABS: INR 2.04; PROTIME 23.5 Sec (11.9-14.9); PT RATIO 1.8
[2018-01-27] MEDS: FAMOTIDINE 20 MG TAB PO (08:53)
[2018-01-27] MEDS: DILTIAZEM (CD) 300 MG CAP PO (08:54)
[2018-01-27] MEDS ORDERED: WARFARIN 2 MG TAB PO (09:00)
[2018-01-27] MEDS ORDERED: WARFARIN 7.5 MG TAB PO (17:00)
[2018-01-30] MEDS ORDERED: WARFARIN 5 MG TAB PO (17:00)
[2018-01-31] MEDS ORDERED: WARFARIN 5 MG TAB PO (17:00)
== END 2018-01-27 13:01 | disposition home or self-care (01) ==
LOC: E/R 00:52 → 6WM 02:57
DX: I48.0 Paroxysmal atrial fibrillation (principal); I48.92 Unspecified atrial flutter; I10 Essential (primary) hypertension; E03.9 Hypothyroidism, unspecified; G47.33 Obstructive sleep apnea (adult) (pediatric); J45.909 Unspecified asthma, uncomplicated; I35.1 Nonrheumatic aortic (valve) insufficiency; I49.5 Sick sinus syndrome; E66.9 Obesity, unspecified; Z68.37 Body mass index [BMI] 37.0-37.9, adult; Z85.850 Personal history of malignant neoplasm of thyroid; Z79.01 Long term (current) use of anticoagulants; Z95.0 Presence of cardiac pacemaker; Z86.711 Personal history of pulmonary embolism
CPT/HCPCS: 36415; 71045; 80048; 80053; 82550; 82553; 83036; 84484; 85025; 85610; 93005; 93306; 99285-25; G0378

== ENCOUNTER 2018-05-20 16:07 | Emergency (ER) | payer BC ==
[2018-05-20] MEDS: METHYLPREDNISOLONE 125 MG INJ IV (18:56)
[2018-05-20] MEDS: LEVALBUTEROL (NEB) 1.25 MG/0.5 ML AMP INH (19:07)
[2018-05-20] MEDS: IPRATROPIUM (NEB) 0.5 MG/2.5 ML AMP NEB (19:07)
== END 2018-05-20 20:35 | disposition home or self-care (01) ==
LOC: FTE 20:35
DX: J45.901 Unspecified asthma with (acute) exacerbation (principal); I10 Essential (primary) hypertension; Z95.0 Presence of cardiac pacemaker
CPT/HCPCS: 71045; 93005; 94664; 96374; 99284-25

== ENCOUNTER 2018-06-27 06:01 | Emergency (ER) | payer BC ==
[2018-06-27] MEDS: KETOROLAC 15 MG INJ IV (07:01)
[2018-06-27 07:29] LABS: ADD MAN DIFF? NO
[2018-06-27 07:32] LABS: BASOPHILS % 0.4 % (0.0-2.0); EOSINOPHILS % 0.2 % (0.0-7.0); HEMATOCRIT 43.2 % (37.0-47.0); HEMOGLOBIN 13.5 g/dl (12.0-16.0); LYMPHOCYTES # 1.5 10^3/ul (0.8-2.9); MEAN CORPUSCULAR HEMOGLOBIN 26.6 pg (29.0-33.0); MEAN CORPUSCULAR HGB CONC 31.3 g/dl (32.0-37.0); MEAN PLATELET VOLUME 9.8 fl (7.4-10.4); MONOCYTE # 0.9 10^3/ul (0.3-0.9); MONOCYTES % 10.7 % (0.0-11.0); NEUTROPHILS % 70.5 % (39.0-77.0); PLATELET COUNT 293 10^3/UL (140-415); RED BLOOD COUNT 5.08 10^6/ul (4.20-5.40); RED CELL DISTRIBUTION WIDTH 16.6 % (11.5-14.5)
[2018-06-27 07:32] LABS: WHITE BLOOD COUNT 8.6 10^3/ul (4.8-10.8)
[2018-06-27 07:52] LABS: ANION GAP 10 (5-13); BLOOD UREA NITROGEN 18 mg/dl (7-20); CALCIUM 9.4 mg/dl (8.4-10.2); CARBON DIOXIDE 32 mmol/L (21-31); CHLORIDE 99 mmol/L (97-110); CREATININE 0.71 mg/dl (0.44-1.00); Estimated GFR > 60 mL/min (>60); GLUCOSE 120 mg/dl (70-220); SODIUM 141 mmol/L (135-144)
[2018-06-27 07:55] LABS: POTASSIUM 7.6 mmol/L (3.5-5.1)
[2018-06-27] MEDS: DEXAMETHASONE 10 MG/ML 1 ML INJ IM (08:03)
[2018-06-27 08:29] LABS: ANION GAP 8 (5-13); BLOOD UREA NITROGEN 17 mg/dl (7-20); CALCIUM 9.4 mg/dl (8.4-10.2); CARBON DIOXIDE 31 mmol/L (21-31); CHLORIDE 103 mmol/L (97-110); CREATININE 0.72 mg/dl (0.44-1.00); Estimated GFR > 60 mL/min (>60); GLUCOSE 112 mg/dl (70-220); POTASSIUM 3.6 mmol/L (3.5-5.1); SODIUM 142 mmol/L (135-144)
[2018-06-27] MEDS: SOD CHLORIDE 0.9% 100 ML (08:54)
[2018-06-27] MEDS: IOHEXOL 300MG/ML 150 ML BTL (08:54)
== END 2018-06-27 11:10 | disposition home or self-care (01) ==
LOC: E/R 06:01
DX: K11.5 Sialolithiasis (principal); K12.2 Cellulitis and abscess of mouth; E03.9 Hypothyroidism, unspecified; I50.9 Heart failure, unspecified; J45.909 Unspecified asthma, uncomplicated; R40.2142 Coma scale, eyes open, spontaneous, at arrival to emergency department; R40.2362 Coma scale, best motor response, obeys commands, at arrival to emergency department; Z79.01 Long term (current) use of anticoagulants; Z95.0 Presence of cardiac pacemaker
CPT/HCPCS: 70491; 80048; 85025; 96372; 96374; 99285-25

== ENCOUNTER 2018-06-29 10:50 | Inpatient (IN) | payer BC ==
[2018-06-29 12:29] LABS: ADD MAN DIFF? NO
[2018-06-29 12:32] LABS: ADD UMIC NO; BASOPHILS % 0.1 % (0.0-2.0); HEMATOCRIT 42.4 % (37.0-47.0); HEMOGLOBIN 13.3 g/dl (12.0-16.0); LYMPHOCYTES # 1.5 10^3/ul (0.8-2.9); LYMPHOCYTES % 10.4 % (15.0-51.0); MEAN CORPUSCULAR HEMOGLOBIN 26.5 pg (29.0-33.0); MEAN CORPUSCULAR HGB CONC 31.4 g/dl (32.0-37.0); MEAN CORPUSCULAR VOLUME 84.6 fl (82.0-101.0); MEAN PLATELET VOLUME 9.7 fl (7.4-10.4); MONOCYTE # 1.4 10^3/ul (0.3-0.9); MONOCYTES % 9.3 % (0.0-11.0); NEUTROPHIL # 11.8 10^3/ul (1.6-7.5); NEUTROPHILS % 79.9 % (39.0-77.0); PLATELET COUNT 303 10^3/UL (140-415); RED BLOOD COUNT 5.01 10^6/ul (4.20-5.40); RED CELL DISTRIBUTION WIDTH 16.4 % (11.5-14.5); UR ASCORBIC ACID NEGATIVE (NEGATIVE); UR BILIRUBIN (Dip) NEGATIVE (NEGATIVE); UR BLOOD (Dip) NEGATIVE (NEGATIVE); UR CLARITY CLEAR (CLEAR); UR COLOR STRAW (YELLOW); UR GLUCOSE (Dip) NEGATIVE (NEGATIVE); UR KETONES (Dip) NEGATIVE (NEGATIVE); UR LEUKOCYTE ESTERASE (Dip) NEGATIVE Leu/ul (NEGATIVE); UR NITRITE (Dip) NEGATIVE (NEGATIVE); UR SPECIFIC GRAVITY (Dip) 1.012 (1.003-1.030); UR TOTAL PROTEIN (Dip) NEGATIVE (NEGATIVE); UR UROBILINOGEN (Dip) NEGATIVE (NEGATIVE)
[2018-06-29 12:32] LABS: WHITE BLOOD COUNT 14.8 10^3/ul (4.8-10.8)
[2018-06-29] MEDS: morphine 4 MG/ML VIAL IV (12:34)
[2018-06-29] MEDS: ONDANSETRON 4 MG INJ IV (12:34)
[2018-06-29] MEDS: SOD CHLORIDE 0.9% 1,000 ML IV (12:35)
[2018-06-29 12:56] LABS: ALANINE AMINOTRANSFERASE 16 IU/L (13-69); ALBUMIN 4.7 g/dl (3.3-4.9); ALBUMIN/GLOBULIN RATIO 1.23; ALKALINE PHOSPHATASE 96 IU/L (42-121); ANION GAP 11 (5-13); ASPARTATE AMINO TRANSFERASE 25 IU/L (15-46); BILIRUBIN,INDIRECT 0.4 mg/dl (0-1.1); BILIRUBIN,TOTAL 0.4 mg/dl (0.2-1.3); BLOOD UREA NITROGEN 24 mg/dl (7-20); CALCIUM 9.4 mg/dl (8.4-10.2); CARBON DIOXIDE 33 mmol/L (21-31); CHLORIDE 100 mmol/L (97-110); CREATININE 0.83 mg/dl (0.44-1.00); Estimated GFR > 60 mL/min (>60); GLUCOSE 102 mg/dl (70-220); POTASSIUM 3.6 mmol/L (3.5-5.1); SODIUM 144 mmol/L (135-144); TOTAL PROTEIN 8.5 g/dl (6.1-8.1)
[2018-06-29] MEDS: IOHEXOL 300MG/ML 150 ML BTL (13:09)
[2018-06-29] MEDS: SOD CHLORIDE 0.9% 100 ML (13:09)
[2018-06-29] MEDS: PIPER-TAZO 3.375 GM IV (PMX) 100 ML IVPB ×2 (15:01→21:16)
[2018-06-29] MEDS: HYDROmorphONE 2 MG/ML SYG IV (17:09)
[2018-06-29] MEDS ORDERED: NA PHOSPHATE/BIPHOS 133 ML ENEMA PR (17:30)
[2018-06-29] MEDS ORDERED: BISACODYL (EC) 5 MG TAB PO (17:30)
[2018-06-29] MEDS ORDERED: ZOLPIDEM 5 MG TAB PO (17:30)
[2018-06-29] MEDS ORDERED: IBUPROFEN 600 MG TAB PO (17:30)
[2018-06-29] MEDS ORDERED: ONDANSETRON 4 MG INJ IV (17:30)
[2018-06-29] MEDS ORDERED: VANCOMYCIN IV PER PHARMACY XX (17:30)
[2018-06-29] MEDS ORDERED: NACL 0.9% 3 ML SYG IV (17:30)
[2018-06-29] MEDS ORDERED: DOCUSATE SODIUM 100 MG CAP PO (17:30)
[2018-06-29] MEDS ORDERED: LORAZEPAM 2 MG INJ IV (17:30)
[2018-06-29] MEDS ORDERED: HYDROCODONE/APAP (5/325) TAB PO (17:30)
[2018-06-29] MEDS ORDERED: ALBUTEROL 0.083% (NEB) 2.5 MG/3 ML AMP HHN (18:00)
[2018-06-29] MEDS: DEXTROSE 5%-0.45% NACL 1,000 ML IV (20:37)
[2018-06-29] MEDS: DEXAMETHASONE 4 MG/ML 1 ML INJ IV ×2 (20:57→21:01)
[2018-06-29] MEDS: POTASSIUM CHLORIDE (SR) 10 MEQ TAB PO (20:57)
[2018-06-29] MEDS: DILTIAZEM (CD) 240 MG CAP PO (20:58)
[2018-06-29] MEDS: VANCOMYCIN HCL 1.5 GM in SOD CHLORIDE 0.9% 250 ML IVPB (22:20)
[2018-06-30] MEDS: DEXTROSE 5%-0.45% NACL 1,000 ML IV ×3 (05:37→17:24)
[2018-06-30] MEDS: LEVOTHYROXINE 125 MCG TAB PO (06:24)
[2018-06-30] MEDS: PIPER-TAZO 3.375 GM IV (PMX) 100 ML IVPB ×3 (06:26→21:39)
[2018-06-30] MEDS: DEXAMETHASONE 4 MG/ML 1 ML INJ IV ×3 (06:26→21:39)
[2018-06-30] MEDS: HYDROCODONE/APAP (5/325) TAB PO (06:30)
[2018-06-30 07:01] LABS: ADD MAN DIFF? NO
[2018-06-30 07:27] LABS: INR 1.77; PARTIAL THROMBOPLASTIN TIME 32.8 Sec (23.0-35.0); PROTIME 20.7 Sec (11.9-14.9); PT RATIO 1.6
[2018-06-30 07:30] LABS: ANION GAP 8 (5-13); BLOOD UREA NITROGEN 13 mg/dl (7-20); CALCIUM 8.7 mg/dl (8.4-10.2); CARBON DIOXIDE 32 mmol/L (21-31); CHLORIDE 103 mmol/L (97-110); CREATININE 0.63 mg/dl (0.44-1.00); Estimated GFR > 60 mL/min (>60); GLUCOSE 133 mg/dl (70-220); POTASSIUM 3.9 mmol/L (3.5-5.1); SODIUM 143 mmol/L (135-144)
[2018-06-30 07:38] LABS: BASOPHILS % 0.3 % (0.0-2.0); EOSINOPHILS % 0.2 % (0.0-7.0); HEMATOCRIT 42.7 % (37.0-47.0); HEMOGLOBIN 13.1 g/dl (12.0-16.0); LYMPHOCYTES # 1.1 10^3/ul (0.8-2.9); LYMPHOCYTES % 10.5 % (15.0-51.0); MEAN CORPUSCULAR HGB CONC 30.7 g/dl (32.0-37.0); MEAN CORPUSCULAR VOLUME 87.9 fl (82.0-101.0); MONOCYTES % 9.7 % (0.0-11.0); RED BLOOD COUNT 4.86 10^6/ul (4.20-5.40); RED CELL DISTRIBUTION WIDTH 16.7 % (11.5-14.5)
[2018-06-30 07:38] LABS: WHITE BLOOD COUNT 10.1 10^3/ul (4.8-10.8)
[2018-06-30 07:46] LABS: PLATELET COUNT 223 10^3/UL (140-415); POSITIVE DIFF @See below
[2018-06-30] MEDS: POTASSIUM CHLORIDE (SR) 10 MEQ TAB PO ×2 (08:17→20:16)
[2018-06-30] MEDS: DILTIAZEM (CD) 240 MG CAP PO ×2 (08:18→20:15)
[2018-06-30] MEDS: HYDROCHLOROTHIAZIDE 25 MG TAB PO (08:19)
[2018-06-30] MEDS ORDERED: HYDROCHLOROTHIAZIDE 50 MG TAB PO (09:00)
[2018-06-30 09:01] LABS: HEMOGLOBIN A1C 6.9 % (0-5.9)
[2018-06-30 10:19] LABS: BAND NEUTROPHILS #M 0.5 10^3/ul (0.0-0.6); BAND NEUTROPHILS % (M) 5 % (0-4); BASOPHIL #M 0.1 10^3/ul (0.0-0.0); BASOPHILS % (M) 1 % (0-2); BURR CELLS 1+ (0-0); LYMPHOCYTES #M 0.8 10^3/ul (0.8-2.9); LYMPHOCYTES % (M) 8 % (15-51); MONOCYTE #M 0.8 10^3/ul (0.3-0.9); MONOCYTES % (M) 8 % (0-11); OVALOCYTES 1+ (0-0); PLATELET ESTIMATE NORMAL; PLATELET MORPHOLOGY COMMENT @See below; POIKILOCYTOSIS 2+ (0-0); POLYCHROMASIA 3+ (0-0); SEG NEUT #M 7.9 10^3/ul (1.6-7.5); SEGMENTED NEUTROPHILS (M) % 78 % (39-77)
[2018-06-30] MEDS: VANCOMYCIN 750 MG (PMX) 250 ML IVPB (10:22)
[2018-06-30 13:36] LABS: THYROID STIMULATING HORMONE 0.609 MIU/L (0.465-4.680)
[2018-06-30] MEDS: WARFARIN 5 MG TAB PO (17:24)
[2018-06-30] MEDS: WARFARIN 2 MG TAB PO (17:24)
[2018-06-30] MEDS: ACCU-CHEK XX ×2 (17:24→20:16)
[2018-07-01] MEDS: VANCOMYCIN 750 MG (PMX) 250 ML IVPB ×2 (00:29→11:57)
[2018-07-01] MEDS: PIPER-TAZO 3.375 GM IV (PMX) 100 ML IVPB ×3 (05:18→20:59)
[2018-07-01] MEDS: DEXTROSE 5%-0.45% NACL 1,000 ML IV ×2 (05:18→21:22)
[2018-07-01] MEDS: LEVOTHYROXINE 125 MCG TAB PO (05:18)
[2018-07-01] MEDS: ACCU-CHEK XX ×5 (07:25→21:00)
[2018-07-01 08:06] LABS: ADD MAN DIFF? NO; BASOPHILS % 0.1 % (0.0-2.0); HEMATOCRIT 40.8 % (37.0-47.0); LYMPHOCYTES # 0.9 10^3/ul (0.8-2.9); LYMPHOCYTES % 6.8 % (15.0-51.0); MEAN CORPUSCULAR HGB CONC 31.9 g/dl (32.0-37.0); MEAN CORPUSCULAR VOLUME 84.6 fl (82.0-101.0); MEAN PLATELET VOLUME 9.9 fl (7.4-10.4); MONOCYTE # 0.8 10^3/ul (0.3-0.9); MONOCYTES % 5.8 % (0.0-11.0); NEUTROPHIL # 11.2 10^3/ul (1.6-7.5); NEUTROPHILS % 86.8 % (39.0-77.0); PLATELET COUNT 309 10^3/UL (140-415); RED BLOOD COUNT 4.82 10^6/ul (4.20-5.40); RED CELL DISTRIBUTION WIDTH 15.9 % (11.5-14.5)
[2018-07-01 08:06] LABS: WHITE BLOOD COUNT 12.9 10^3/ul (4.8-10.8)
[2018-07-01] MEDS: HYDROCODONE/APAP (5/325) TAB PO ×2 (08:10→15:11)
[2018-07-01 08:21] LABS: INR 1.84; PROTIME 21.3 Sec (11.9-14.9); PT RATIO 1.7
[2018-07-01 08:22] LABS: ANION GAP 8 (5-13); BLOOD UREA NITROGEN 15 mg/dl (7-20); CARBON DIOXIDE 30 mmol/L (21-31); CHLORIDE 105 mmol/L (97-110); CREATININE 0.66 mg/dl (0.44-1.00); Estimated GFR > 60 mL/min (>60); GLUCOSE 150 mg/dl (70-220); POTASSIUM 3.7 mmol/L (3.5-5.1); SODIUM 143 mmol/L (135-144)
[2018-07-01] MEDS: POTASSIUM CHLORIDE (SR) 10 MEQ TAB PO ×2 (09:00→20:57)
[2018-07-01] MEDS: HYDROCHLOROTHIAZIDE 25 MG TAB PO (09:00)
[2018-07-01] MEDS: DILTIAZEM (CD) 240 MG CAP PO ×2 (09:00→20:58)
[2018-07-01 11:31] LABS: VANCOMYCIN,TROUGH 6.3 ug/ml (10.0-20.0)
[2018-07-01] MEDS: WARFARIN 5 MG TAB PO (16:46)
[2018-07-01] MEDS: DOCUSATE SODIUM 100 MG CAP PO (20:59)
[2018-07-02] MEDS: VANCOMYCIN HCL 1.25 GM in SOD CHLORIDE 0.9% 250 ML IVPB ×2 (00:10→11:33)
[2018-07-02] MEDS: PIPER-TAZO 3.375 GM IV (PMX) 100 ML IVPB ×3 (05:26→22:35)
[2018-07-02] MEDS: LEVOTHYROXINE 125 MCG TAB PO (05:26)
[2018-07-02 07:16] LABS: ADD MAN DIFF? NO
[2018-07-02 07:29] LABS: WHITE BLOOD COUNT 13.1 10^3/ul (4.8-10.8)
[2018-07-02 07:29] LABS: BASOPHILS % 0.1 % (0.0-2.0); EOSINOPHILS % 0.1 % (0.0-7.0); HEMATOCRIT 41.5 % (37.0-47.0); HEMOGLOBIN 13.3 g/dl (12.0-16.0); LYMPHOCYTES # 1.3 10^3/ul (0.8-2.9); MEAN CORPUSCULAR VOLUME 84.3 fl (82.0-101.0); MEAN PLATELET VOLUME 10.3 fl (7.4-10.4); MONOCYTES % 7.3 % (0.0-11.0); NEUTROPHIL # 10.7 10^3/ul (1.6-7.5); NEUTROPHILS % 81.8 % (39.0-77.0); PLATELET COUNT 340 10^3/UL (140-415); RED BLOOD COUNT 4.92 10^6/ul (4.20-5.40)
[2018-07-02] MEDS: DEXTROSE 5%-0.45% NACL 1,000 ML IV ×2 (07:37→16:01)
[2018-07-02 07:44] LABS: INR 2.02; PROTIME 22.9 Sec (11.9-14.9); PT RATIO 1.8
[2018-07-02 07:56] LABS: ANION GAP 7 (5-13); BLOOD UREA NITROGEN 19 mg/dl (7-20); CALCIUM 8.8 mg/dl (8.4-10.2); CARBON DIOXIDE 32 mmol/L (21-31); CHLORIDE 103 mmol/L (97-110); CREATININE 0.83 mg/dl (0.44-1.00); Estimated GFR > 60 mL/min (>60); GLUCOSE 131 mg/dl (70-220); SODIUM 142 mmol/L (135-144)
[2018-07-02] MEDS: ACCU-CHEK XX ×4 (08:17→21:00)
[2018-07-02] MEDS: HYDROCHLOROTHIAZIDE 25 MG TAB PO (08:18)
[2018-07-02] MEDS: DILTIAZEM (CD) 240 MG CAP PO ×2 (08:19→20:51)
[2018-07-02] MEDS: DOCUSATE SODIUM 100 MG CAP PO ×2 (08:19→20:51)
[2018-07-02] MEDS: POTASSIUM CHLORIDE (SR) 10 MEQ TAB PO ×2 (08:19→20:51)
[2018-07-02] MEDS: SOD CHLORIDE 0.9% 100 ML (13:20)
[2018-07-02] MEDS: IOHEXOL 300MG/ML 150 ML BTL (13:20)
[2018-07-02] MEDS: WARFARIN 5 MG TAB PO (18:37)
[2018-07-02] MEDS: WARFARIN 2 MG TAB PO (18:37)
[2018-07-03] MEDS: VANCOMYCIN HCL 1.25 GM in SOD CHLORIDE 0.9% 250 ML IVPB ×2 (01:23→14:19)
[2018-07-03] MEDS: PIPER-TAZO 3.375 GM IV (PMX) 100 ML IVPB ×3 (06:04→21:41)
[2018-07-03] MEDS: LEVOTHYROXINE 125 MCG TAB PO (06:10)
[2018-07-03 06:38] LABS: ADD MAN DIFF? NO
[2018-07-03 06:51] LABS: BASOPHILS % 0.3 % (0.0-2.0); EOSINOPHILS # 0.1 10^3/ul (0.0-0.5); EOSINOPHILS % 0.7 % (0.0-7.0); HEMATOCRIT 44.7 % (37.0-47.0); HEMOGLOBIN 14.2 g/dl (12.0-16.0); LYMPHOCYTES # 2.5 10^3/ul (0.8-2.9); LYMPHOCYTES % 25.6 % (15.0-51.0); MEAN CORPUSCULAR HEMOGLOBIN 26.6 pg (29.0-33.0); MEAN CORPUSCULAR HGB CONC 31.8 g/dl (32.0-37.0); MEAN CORPUSCULAR VOLUME 83.9 fl (82.0-101.0); MEAN PLATELET VOLUME 10.3 fl (7.4-10.4); MONOCYTE # 0.9 10^3/ul (0.3-0.9); MONOCYTES % 9.3 % (0.0-11.0); NEUTROPHIL # 6.1 10^3/ul (1.6-7.5); NEUTROPHILS % 63.5 % (39.0-77.0); PLATELET COUNT 312 10^3/UL (140-415); RED BLOOD COUNT 5.33 10^6/ul (4.20-5.40); RED CELL DISTRIBUTION WIDTH 16.1 % (11.5-14.5)
[2018-07-03 06:51] LABS: WHITE BLOOD COUNT 9.6 10^3/ul (4.8-10.8)
[2018-07-03] MEDS: ACCU-CHEK XX ×4 (07:38→21:00)
[2018-07-03] MEDS: DOCUSATE SODIUM 100 MG CAP PO ×2 (08:30→21:41)
[2018-07-03] MEDS: POTASSIUM CHLORIDE (SR) 10 MEQ TAB PO ×2 (08:31→21:41)
[2018-07-03] MEDS: HYDROCHLOROTHIAZIDE 25 MG TAB PO (08:31)
[2018-07-03] MEDS: DILTIAZEM (CD) 240 MG CAP PO ×2 (08:31→21:00)
[2018-07-03 09:55] LABS: ANISOCYTOSIS 2+ (0-0); BAND NEUTROPHILS #M 0.1 10^3/ul (0.0-0.6); BAND NEUTROPHILS % (M) 2 % (0-4); BURR CELLS 2+ (0-0); EOSINOPHILS % (M) 1 % (0-7); GIANT THROMBO% (M) 1 % (0-0); LYMPHOCYTES #M 2.9 10^3/ul (0.8-2.9); LYMPHOCYTES % (M) 31 % (15-51); MONOCYTES % (M) 11 % (0-11); PLATELET ESTIMATE NORMAL; POIKILOCYTOSIS 1+ (0-0); POLYCHROMASIA 3+ (0-0); SEG NEUT #M 5.3 10^3/ul (1.6-7.5); SEGMENTED NEUTROPHILS (M) % 55 % (39-77)
[2018-07-03 11:29] LABS: INR 1.91; PT RATIO 1.7
[2018-07-03 11:40] LABS: VANCOMYCIN,TROUGH 15.7 ug/ml (10.0-20.0)
[2018-07-03] MEDS: WARFARIN 5 MG TAB PO (17:19)
[2018-07-04] MEDS: VANCOMYCIN HCL 1.25 GM in SOD CHLORIDE 0.9% 250 ML IVPB ×2 (02:19→13:12)
[2018-07-04] MEDS: LEVOTHYROXINE 125 MCG TAB PO (05:19)
[2018-07-04] MEDS: PIPER-TAZO 3.375 GM IV (PMX) 100 ML IVPB ×3 (05:19→23:10)
[2018-07-04 07:18] LABS: PROTIME 22.8 Sec (11.9-14.9); PT RATIO 1.8
[2018-07-04] MEDS: ACCU-CHEK XX ×4 (08:02→21:00)
[2018-07-04] MEDS: POTASSIUM CHLORIDE (SR) 10 MEQ TAB PO ×2 (08:29→20:17)
[2018-07-04] MEDS: HYDROCHLOROTHIAZIDE 25 MG TAB PO (08:29)
[2018-07-04] MEDS: DILTIAZEM (CD) 240 MG CAP PO ×2 (08:30→20:18)
[2018-07-04] MEDS: DOCUSATE SODIUM 100 MG CAP PO ×2 (08:30→20:17)
[2018-07-04] MEDS: WARFARIN 5 MG TAB PO (17:55)
[2018-07-05] MEDS: VANCOMYCIN HCL 1.25 GM in SOD CHLORIDE 0.9% 250 ML IVPB ×2 (02:22→14:06)
[2018-07-05] MEDS: PIPER-TAZO 3.375 GM IV (PMX) 100 ML IVPB ×2 (06:12→13:00)
[2018-07-05] MEDS: LEVOTHYROXINE 125 MCG TAB PO (06:12)
[2018-07-05] MEDS: ACCU-CHEK XX ×3 (07:25→16:38)
[2018-07-05 07:32] LABS: BLOOD UREA NITROGEN 22 mg/dl (7-20)
[2018-07-05 07:32] LABS: CREATININE 0.87 mg/dl (0.44-1.00)
[2018-07-05] MEDS: POTASSIUM CHLORIDE (SR) 10 MEQ TAB PO (08:16)
[2018-07-05] MEDS: DILTIAZEM (CD) 240 MG CAP PO (08:16)
[2018-07-05] MEDS: HYDROCHLOROTHIAZIDE 25 MG TAB PO (08:16)
[2018-07-05] MEDS: DOCUSATE SODIUM 100 MG CAP PO (08:17)
[2018-07-05] MEDS: WARFARIN 2 MG TAB PO (16:37)
[2018-07-05] MEDS: WARFARIN 5 MG TAB PO (16:38)
== END 2018-07-05 19:33 | disposition home or self-care (01) | DRG 155 ==
LOC: FTE 10:50 → TEL 15:09
DX: K11.21 Acute sialoadenitis (principal); L03.221 Cellulitis of neck; D68.59 Other primary thrombophilia; B37.0 Candidal stomatitis; I48.2 Chronic atrial fibrillation; E11.9 Type 2 diabetes mellitus without complications; K11.8 Other diseases of salivary glands; K11.5 Sialolithiasis; I10 Essential (primary) hypertension; J45.20 Mild intermittent asthma, uncomplicated; E89.0 Postprocedural hypothyroidism; Z79.01 Long term (current) use of anticoagulants; Z86.711 Personal history of pulmonary embolism; Z95.0 Presence of cardiac pacemaker
CPT/HCPCS: 36415; 70491; 80048; 80053; 80202; 81003; 82565; 82962; 83036; 84443; 84520; 85025; 85610; 85730; 87070; 94660; 96361; 96374; 96375; 99285-25

== ENCOUNTER 2018-09-21 14:57 | Emergency (ER) | payer BC ==
[2018-09-21 17:42] LABS: ADD MAN DIFF? NO
[2018-09-21 17:50] LABS: BASOPHILS % 0.4 % (0.0-2.0); EOSINOPHILS % 0.9 % (0.0-7.0); HEMATOCRIT 44.1 % (37.0-47.0); HEMOGLOBIN 13.9 g/dl (12.0-16.0); LYMPHOCYTES # 1.2 10^3/ul (0.8-2.9); LYMPHOCYTES % 26.8 % (15.0-51.0); MEAN CORPUSCULAR HEMOGLOBIN 26.7 pg (29.0-33.0); MEAN CORPUSCULAR HGB CONC 31.5 g/dl (32.0-37.0); MEAN CORPUSCULAR VOLUME 84.6 fl (82.0-101.0); MEAN PLATELET VOLUME 9.9 fl (7.4-10.4); MONOCYTE # 0.4 10^3/ul (0.3-0.9); MONOCYTES % 9.6 % (0.0-11.0); NEUTROPHIL # 2.8 10^3/ul (1.6-7.5); NEUTROPHILS % 62.3 % (39.0-77.0); PLATELET COUNT 291 10^3/UL (140-415); RED BLOOD COUNT 5.21 10^6/ul (4.20-5.40); RED CELL DISTRIBUTION WIDTH 16.5 % (11.5-14.5)
[2018-09-21 17:50] LABS: WHITE BLOOD COUNT 4.6 10^3/ul (4.8-10.8)
[2018-09-21 18:09] LABS: ANION GAP 9 (5-13); BLOOD UREA NITROGEN 21 mg/dl (7-20); CALCIUM 9.7 mg/dl (8.4-10.2); CARBON DIOXIDE 30 mmol/L (21-31); CHLORIDE 105 mmol/L (97-110); CREATININE 0.89 mg/dl (0.44-1.00); Estimated GFR > 60 mL/min (>60); GLUCOSE 93 mg/dl (70-220); POTASSIUM 3.9 mmol/L (3.5-5.1); SODIUM 144 mmol/L (135-144)
[2018-09-21 18:11] LABS: INR 1.84; PROTIME 21.3 Sec (11.9-14.9); PT RATIO 1.7
[2018-09-21 18:12] LABS: PARTIAL THROMBOPLASTIN TIME 43.9 Sec (23.0-35.0)
[2018-09-21] MEDS: SOD CHLORIDE 0.9% 500 ML IV (18:14)
[2018-09-21 18:21] LABS: TROPONIN-I < 0.012 ng/ml (0.000-0.120)
== END 2018-09-21 19:56 | disposition home or self-care (01) ==
LOC: E/R 14:57
DX: R00.2 Palpitations (principal); R00.0 Tachycardia, unspecified; J45.909 Unspecified asthma, uncomplicated; I10 Essential (primary) hypertension; Z79.01 Long term (current) use of anticoagulants
CPT/HCPCS: 36415; 80048; 84484; 85025; 85610; 85730; 93005; 99284-25